=== PATIENT | male | born 1975 ===

== ENCOUNTER 2016-12-16 14:45 | Emergency (ER) | payer SELFPAY ==
[2016-12-16 14:53] VITALS: BP 131/71; PULSE 63; RESP 16; TEMP 98; O2SAT 98
--- NOTE | 2016-12-16 15:07 | ED PDOC ---
HPI: Skin/Bite Injury Time Seen by Provider: 12/16/16 14:53 Chief Complaint (Nursing): Bite Chief Complaint (Provider): Bite History Per: Patient History/Exam Limitations: no limitations Onset/Duration Of Symptoms: Days (x2) Additional Complaint(s): Aleksandr Marquez is a 41 year old male presenting to the ED for an evaluation of a cat bite occurring 2 days prior to arrival. The patient owns the cat. He states the cat tried to climb something and he tried to get the cat down. In turn he was bitten and scratched. He reports the cat is up to date with vaccinations. Of note, the patients Tetanus is not up to date. PMD: Provider TBD Past Medical History Reviewed: Historical Data, Nursing Documentation, Vital Signs Vital Signs: Last Vital Signs Temp 98 F 12/16/16 14:49 Pulse 63 12/16/16 14:49 Resp 16 12/16/16 14:49 BP 131/71 12/16/16 14:49 Pulse Ox 98 12/16/16 15:07 - Medical History PMH: No Chronic Diseases - Family History Family History: States: Unknown Family Hx - Social History Current smoker - smoking cessation education provided: No Ex-Smoker (has not smoked in the last 12 months): No Alcohol: None Drugs: Denies - Home Medications Home Medications: Ambulatory Orders Medication Instructions Recorded Amoxicillin/Clavulanate [Augmentin 1 tab PO BID #20 tab 12/16/16 875 MG-125 MG] - Allergies Allergies/Adverse Reactions: Allergies Allergy/AdvReac Type Severity Reaction Status Date / Time No Known Allergies Allergy Verified 12/16/16 14:49 Review of Systems Skin: Positive for: Other (cat bite and scratches) Physical Exam - Reviewed Nursing Documentation Reviewed: Yes Vital Signs Reviewed: Yes - Physical Exam Appears: Positive for: Non-toxic, No Acute Distress Head Exam: Positive for: ATRAUMATIC, NORMOCEPHALIC Extremity: Positive for: Other (punctured wounds to right and left forearm with surrounding erythema ) Neurologic/Psych: Positive for: Alert, Oriented - ECG O2 Sat by Pulse Oximetry: 98 (RA) Pulse Ox Interpretation: Normal Medical Decision Making Medical Decision Making: Time: 14:53 Impression: Bite Plan: * Adacel 0.5 ml IM Scribe Attestation: Documented by Bella Ness, acting as a scribe for Nilda Blank PA-C. Provider Scribe Attestation: All medical record entries made by the Scribe were at my direction and personally dictated by me. I have reviewed the chart and agree that the record accurately reflects my personal performance of the history, physical exam, medical decision making, and the department course for this patient. I have also personally directed, reviewed, and agree with the discharge instructions and disposition. Disposition - Clinical Impression Clinical Impression: Animal bite wound, Tetanus toxoid vaccination administered at current visit - Disposition Disposition Time: 15:18 Condition: STABLE Prescriptions: Amoxicillin/Clavulanate [Augmentin 875 MG-125 MG] 1 tab PO BID #20 tab Instructions: Animal Bite (ED) Forms: [employer] (Urdu)
== END 2016-12-16 15:19 | disposition home or self-care (01) ==
LOC: H.ER 14:45
DX: Z23 Encounter for immunization (principal)

== ENCOUNTER 2017-09-10 10:38 | Emergency (ER) | payer OTHER ==
[2017-09-10 10:53] VITALS: BMI 23.5
[2017-09-10] MEDS ORDERED: PROPARACAINE/FLUORESCEIN SOD 100 DROP/5 ML BOTTLE OS STA (11:27)
[2017-09-10] MEDS ORDERED: PROPARACAINE/FLUORESCEIN SOD 100 DROP/5 ML BOTTLE ONE (11:32)
--- NOTE | 2017-09-10 12:24 | ED PDOC ---
HPI: Eye Injury/Pain Time Seen by Provider: 09/10/17 11:13 Chief Complaint (Nursing): Eye Problem Chief Complaint (Provider): Left Eyelid Swelling History Per: Patient History/Exam Limitations: no limitations Onset/Duration Of Symptoms: Days (x2) Current Symptoms Are (Timing): Still Present Injury To Eye?: No Severity: None Wears Contact Lens?: No Associated Symptoms: Swelling, Discharge From Eye. denies: Pain, Decreased Vision, Itching Additional Complaint(s): 42 year old male presents to the emergency department with swelling to his left eye since Saturday. Patient reports that he initially had a stye on his left upper eye lid and was applying warm compresses. He further states that after a while he realized that the swelling got worse and he also noticed some discharge form the eye. Denies wearing contact lies. Denies headache, fevers, chills, cough, sore throat. PMD: Dr. Xie Past Medical History Reviewed: Historical Data, Nursing Documentation, Vital Signs Vital Signs: Last Vital Signs Temp 97 F L 09/10/17 10:52 Pulse 64 09/10/17 10:52 Resp BP 127/74 09/10/17 10:52 Pulse Ox 99 09/10/17 10:52 - Medical History PMH: No Chronic Diseases - Surgical History Surgical History: No Surg Hx - Family History Family History: States: Unknown Family Hx - Social History Current smoker - smoking cessation education provided: No Ex-Smoker (has not smoked in the last 12 months): No Alcohol: None Drugs: Denies - Home Medications Home Medications: Ambulatory Orders Medication Instructions Recorded Amoxicillin/Clavulanate [Augmentin 1 tab PO BID #20 tab 12/16/16 875 MG-125 MG] Clindamycin [Cleocin] 300 mg PO TID #21 cap 09/10/17 Ofloxacin Ophth 0.3% [Ocuflox 1 drop OS Q4 #1 bottle 09/10/17 Ophth 0.3%] - Allergies Allergies/Adverse Reactions: Allergies Allergy/AdvReac Type Severity Reaction Status Date / Time No Known Allergies Allergy Verified 12/16/16 14:49 Review of Systems ROS Statement: Except As Marked, All Systems Reviewed And Found Negative Eyes: Positive for: Other (Left eye swelling). Negative for: Pain, Vision Change Physical Exam - Reviewed Nursing Documentation Reviewed: Yes Vital Signs Reviewed: Yes - Physical Exam Appears: Positive for: Non-toxic, No Acute Distress Head Exam: Positive for: ATRAUMATIC, NORMAL INSPECTION, NORMOCEPHALIC Skin: Positive for: Normal Color, Warm, Dry. Negative for: Rash Eye Exam: Positive for: EOMI, PERRL, Conjunctival injection (mild conjunctival injection to left eye), Other (no corneal abrasion or ulcers; no fluorescein uptake;redness limited to left upper eyelid with swelling; No proptosis). Negative for: Periorbital swelling, Periorbital tenderness ENT: Positive for: Normal ENT Inspection. Negative for: Nasal Congestion, Tonsillar Exudate, Tonsillar Swelling Neurologic/Psych: Positive for: Alert, Oriented - ECG O2 Sat by Pulse Oximetry: 99 (RA) Pulse Ox Interpretation: Normal Medical Decision Making Medical Decision Makin Initial Impression Left eye conjunctivitis and left upper eyelid stye and blepharitis Initial Plan: * Flucaine eye drops 2 drops OS * Reevaluation Patient is medically stable and will be discharged home oflaxicin eyedrops and clindamycin and also advised to apply warm compresses to the affected area. PETRA HENDERSON, thank you for letting us take care of you today. Your provider was Brian Del Cid MD and you were treated for SWOLLEN LEFT EYE. The emergency medical care you received today was directed at your acute symptoms. If you were prescribed any medication, please fill it and take as directed. It may take several days for your symptoms to resolve. Return to the Emergency Department if your symptoms worsen, do not improve, or if you have any other problems. Please contact your doctor or call one of the physicians/clinics you have been referred to that are listed on the Patient Visit Information form that is included in your discharge packet. Bring any paperwork you were given at discharge with you along with any medications you are taking to your follow up visit. Our treatment cannot replace ongoing medical care by a primary care provider outside of the emergency department. Thank you for allowing the [facility] team to be part of your care today. Documented by Otilia Arroyo acting as a scribe for Brian Del Cid MD. All medical record entries made by the Scribe were at my direction and personally dictated by me. I have reviewed the chart and agree that the record accurately reflects my personal performance of the history, physical exam, medical decision making, and the department course for this patient. I have also personally directed, reviewed, and agree with the discharge instructions and disposition. Disposition - Clinical Impression Clinical Impression: Eye infection - Patient ED Disposition Is Patient to be Admitted: No Counseled Patient/Family Regarding: Studies Performed, Diagnosis, Rx Given - Disposition Referrals: Joseluis Napoles MD [Family Provider] - Disposition: Routine/Home Disposition Time: 12:15 Condition: GOOD Additional Instructions: Follow up with your PCP in 2-3 days. Prescriptions: Clindamycin [Cleocin] 300 mg PO TID #21 cap Ofloxacin Ophth 0.3% [Ocuflox Ophth 0.3%] 1 drop OS Q4 #1 bottle Instructions: Stye (Hordeolum), Blepharitis, Conjunctivitis (Pinkeye) (DC)
[2017-09-10 12:43] VITALS: BP 132/64; PULSE 66; RESP 17; TEMP 97.7
[2017-09-13 10:00] VITALS: O2SAT 99
== END 2017-09-10 12:30 | disposition home or self-care (01) ==
LOC: H.ER 10:38
DX: H00.014 Hordeolum externum left upper eyelid (principal); H10.32 Unspecified acute conjunctivitis, left eye